=== PATIENT | female | born 1985 | race African-American/Black ===

== ENCOUNTER 2022-06-04 09:24 | Emergency (ER) | payer BC ==
[2022-06-04] MEDS ORDERED: Dexamethasone 10 MG/ML VIAL ONE (09:42)
[2022-06-04] MEDS ORDERED: Ketorolac Tromethamine 30 MG/ML VIAL ONE (09:42)
== END 2022-06-04 11:12 | disposition home or self-care (01) ==
LOC: CSHERS 09:24
DX: M54.12 Radiculopathy, cervical region (principal); M50.31 Other cervical disc degeneration, high cervical region
CPT/HCPCS: 72125; 96374; 96375; J1100; J1885